=== PATIENT | male | born 1995 | race Caucasian/White ===

== ENCOUNTER 2018-01-23 19:00 | Emergency (ER) | payer MEDICAID ==
[~2018-01-23] VITALS: Ht 180.3 cm; Wt 75.3 kg
[2018-01-23] MEDS ORDERED: AMOX-422 PO (19:53)
[2018-01-23] MEDS ORDERED: IBUP-1984 PO (19:54)
[2018-01-23] MEDS ORDERED: HYDR-569 PO (19:54)
[2018-01-23 20:04] VITALS: BP 111/65
== END 2018-01-23 20:05 | disposition home or self-care (01) ==
LOC: ER 19:01
DX: K04.7 Periapical abscess without sinus (principal); F17.200 Nicotine dependence, unspecified, uncomplicated; Z79.899 Other long term (current) drug therapy
CPT/HCPCS: 99283